=== PATIENT | male | born 2000 | race Caucasian/White ===

== ENCOUNTER 2023-01-08 22:22 | Outpatient (CLI) | payer BC, SELFPAY | END 2023-01-08 22:23 | disposition home or self-care (01) | LOC: AMB 01-13 12:51 | PROVIDERS: Visit Provider Internal Medicine | DX: S19.9XXA Unspecified injury of neck, initial encounter (principal); Y93.72 Activity, wrestling; Y92.9 Unspecified place or not applicable | CPT/HCPCS: A0425; A0429 ==

== ENCOUNTER 2023-01-08 22:47 | Emergency (ER) | payer BC, SELFPAY ==
[2023-01-08 22:53] VITALS: BP 132/93; PULSE 89; RESP 20; TEMP 36.9; O2SAT 97; BMI 20.2
--- NOTE | 2023-01-08 22:53 | CRLHL7_ITS ---
For Patients: As a result of the Century Cures Act, medical imaging exams and procedure reports are released immediately into your electronic medical record. You may view this report before your referring provider. If you have questions, please contact your health care provider. INDICATION: Injury. TECHNIQUE: CT head without contrast. COMPARISON: None. FINDINGS: CSF spaces: Within normal limits for age. Brain parenchyma: The williamson-white differentiation is normal. No sign of mass, hemorrhage, or midline shift. Skull base and calvarium: The visualized paranasal sinuses and mastoid air cells demonstrate no acute or significant findings. Right scleral buckling. No skull fractures. IMPRESSION: No acute intracranial abnormality. Please note that all CT scans at this facility use dose modulation, iterative reconstruction, and/or weight-based dosing when appropriate to reduce radiation dose to as low as reasonably achievable. Dictated by Asif Hodges MD @ 01/08/2023 11:18:17 PM (Electronically Signed)
--- NOTE | 2023-01-08 22:53 | CRLHL7_ITS ---
For Patients: As a result of the Cures Act, medical imaging exams and procedure reports are released immediately into your electronic medical record. You may view this report before your referring provider. If you have questions, please contact your health care provider. INDICATION: Injury. TECHNIQUE: CT cervical spine without contrast. COMPARISON: None. FINDINGS: Vertebrae: Alignment is normal. There are no fractures or suspicious bony lesions. Discs and facet joints: Disc spaces and facets are within normal limits. Extraspinal findings: Prevertebral soft tissues, visualized airway, and visualized lungs are unremarkable. IMPRESSION: No acute fracture or traumatic subluxation of the cervical spine. Please note that all CT scans at this facility use dose modulation, iterative reconstruction, and/or weight-based dosing when appropriate to reduce radiation dose to as low as reasonably achievable. Dictated by Asif Hodges MD @ 01/08/2023 11:20:06 PM (Electronically Signed)
--- NOTE | 2023-01-08 22:54 | ED_ITS ---
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 There appears to be some axial loading of the injury. Patient has pain in the midline of his neck as wel l as in the occiput of his head with no other significant symptoms. The injury occurred immediately prior to coming in. He has had no change in his bowel or bladder no neurologic symptoms no fevers no chills no night sweats no mental status changes. Patient was very concerned called for an ambulance who brought him in. Patient is currently in a neck collar. No previous history of [employer] injury or trauma. Related Data Home Medications Medication Instructions Recorded Confirmed No Known Home Medications 01/08/23 01/08/23 Allergies Allergy/AdvReac Type Severity Reaction Status Date / Time zpack Allergy Uncoded 01/08/23 22:53 Review of Systems Status of ROS: Reports: 10 or more systems reviewed and unremarkable except as noted in History and below Exam Narrative: Exam Narrative: EXAM GENERAL: Patient appears comfortable and well. EYES: No scleral icterus. ENT: Tympanic membranes and oropharynx normal. THYROID: no thyroid nodules or thyromegaly. LYMPH: No supraclavicular or cervical lymphadenopathy. SKIN: Visible skin seen during exam normal or with benign process only. EXT: No dependent lower extremity pedal edema. HEART: Regular rate and rhythm with no murmurs, rubs, or gallops. LUNGS: Clear to auscultation bilaterally with no crackles or wheezes. ABD: Soft, non tender, non distended. PSYCH: Good eye contact, speech is not pressured. Cranial nerves 2-12 grossly intact no focal defects GCS is 15 No bruises or ecchymoses. Back exam is normal. Const: Vital Signs, click to edit/add: Vital Signs - 24 hr 01/08/23 22:53 Temperature 98.4 F Pulse Rate [Pulse Oximeter] 89 Respiratory Rate 20 Blood Pressure [Ri ght Upper Arm] 132/93 H Pulse Oximetry 97 Oxygen Delivery Me thod Room Air Course Course Hospital Course: Patient seen and examined. CT of the head neck ordered. Vital Signs Vital signs: Initial Vital Signs Temperature 98.4 F 01/08/23 22:53 Temperature Source Temporal Artery Scan 01/08/23 22:53 Pulse Rate 89 01/08/23 22:53 Pulse Rhythm Regular 01/08/23 22:53 Pulse Strength 3+ Normal 01/08/23 22:53 Respiratory Rate 20 01/08/23 22:53 Blood Pressure 132/93 H 01/08/23 22:53 Blood Pressure Mean 106 H 01/08/23 22:53 Pulse Oximetry 97 01/08/23 22:53 Oxygen Delivery Method Room Air 01/08/23 22:53 Vital Signs Temperature 98.4 F 01/08/23 22:53 Pulse Rate 89 01/08/23 22:53 Respiratory Rate 20 01/08/23 22:53 Blood Pressure 132/93 H 01/08/23 22:53 Pulse Oximetry 97 01/08/23 22:53 Oxygen Delivery Method Room Air 01/08/23 22:53 Temperature 98.4 F 01/08/23 22:53 Pulse Rate 89 01/08/23 22:53 Respiratory Rate 20 01/08/23 22:53 Blood Pressure 132/93 H 01/08/23 22:53 Pulse Oximetry 97 01/08/23 22:53 Oxygen Delivery Method Room Air 01/08/23 22:53 MDM - Neck Pain/Injury MDM Narrative Medical decision making narrative: Patient is a 22-year-old gentleman comes in today with contusion of the head neck. CT of the head neck are negative for fracture. Patient has no neurologic symptoms and has a normal exam and normal vital signs. He is feeling fine otherwise. All evaluation is reassuring at this time I did elect treat with ice Tylenol Motrin rest and advancement of his activity as tolerated. Differential Diagnosis Differential diagnosis: Likely disc disorder of cervical region, whiplash injury to neck, closed subluxation of cervical spine, fracture of cervical spine without lesion of spinal cord, cervical radiculopathy, cervical spondylosis and strain of neck muscle Discharge Plan Discharge Clinical Impression: Strain of neck muscle Patient Disposition: Home, Self-Care Condition: Stable Instructions: Cervical Sprain (ED) Additional Instructions: Ice Tylenol Motrin Rest Advancement of activity as tolerated. Activity Level: No Restrictions Discharge Diet: Regular Prescriptions: No Action No Known Home Medications Stand Alone Forms: [facility] Instructions
== END 2023-01-08 23:43 | disposition home or self-care (01) ==
PROVIDERS: Emergency Provider Internal Medicine
DX: S16.1XXA Strain of muscle, fascia and tendon at neck level, initial encounter (principal); Y93.72 Activity, wrestling
CPT/HCPCS: 70450; 72125; 99283